=== PATIENT | female | born 1960 | race Two or more races ===

== ENCOUNTER 2017-04-11 10:49 | Emergency (ER) | payer SELFPAY ==
[~2017-04-11] VITALS: Ht 167.6 cm; Wt 113.4 kg
[2017-04-11 10:59] VITALS: BP 130/74
[2017-04-11] MEDS ORDERED: Morphine Sulfate 4mg/ml Inj IM ONE (11:15)
--- NOTE | 2017-04-11 11:58 | Diagnostic Imaging Report ---
Indication: Headache Technique: Contiguous 5 mm thick transaxial imaging of the head obtained in a Siemens Sensation [address] scanner. Soft tissue and bone windows generated. Automatic Exposure Control was utilized. Total Dose length Product (DLP): 1411.[address] Dose Index Volume (CTDIvol): 70.38 mGy Comparison: none Findings: The size and configuration of the cortical sulci, basal cisterns, and ventricles are within normal limits for age. There is no mass effect, midline shift, or edema identified. There is no evidence of acute hemorrhage or abnormal intra-axial or extra-axial fluid collections. The bones and soft tissues are unremarkable. Impression: No mass effect, edema or acute bleed. The CT scanner at [facility] is accredited by the [employer] and the scans are performed using dose optimization techniques as appropriate to a performed exam including Automatic Exposure control.
--- NOTE | 2017-04-11 12:02 | Diagnostic Imaging Report ---
Indication: Pelvic trauma and left hip pain Technique: Continuous helical transaxial imaging of the pelvis was obtained from the iliac crest to the pubic symphysis. Coronal 2-D reformats were also obtained. Study obtained in a Siemens sensation [address] Intravenous non-ionic contrast was administered. Total Dose length Product (DLP): 757.[address] Dose Index Volume (CTDIvol): 29.19 mGy Comparison: None Findings: No acute fracture or malalignment identified. Some vacuum phenomena and sclerosis of the sacroiliac joints noted indicative of mild arthrosis. Soft tissues are unremarkable in appearance. Incidentally there are some diverticula in the sigmoid colon demonstrated. Normal appendix is partially imaged on this study. There is a left adnexal structure that is probably the left ovary measuring 2.8 x 2.3 cm on transaxial images. Uterus is moderately atrophic. There is a right inguinal hernia containing fat. IMPRESSION: No acute injury identified. Incidental findings as described above The CT scanner at [facility] is accredited by the [employer] and the scans are performed using dose optimization techniques as appropriate to a performed exam including Automatic Exposure control.
[2017-04-11] MEDS ORDERED: IBUPROFEN600 MG ORAL (13:08)
[2017-04-11] MEDS ORDERED: CYCLOBENZAPRINE10 MG ORAL (13:16)
[2017-04-11 13:24] VITALS: BP 125/81
[2017-04-11] MEDS ORDERED: Ketorolac 30mg Inj IM ONE (13:30)
--- NOTE | 2017-04-12 13:39 | Emergency Room Report ---
History of Present Illness General Chief Complaint: Multiple Trauma/Fall Source: Patient Present Illness HPI 57-year-old female presents ED for evaluation. Patient brought in by EMS. Patient had a mechanical trip and fall today. Hit the back of her head, landing on her left hip. Denies LOC. Laceration to back of scalp. Tetanus is up-to-date. Complaining of left hip pain. Sharp, 10 out of 10, nonradiating. Denies any other injuries. Unable to bear weight. No other aggravating relieving factors. Denies any other associated symptoms Allergies: Coded Allergies: CODEINE (Verified Allergy, Intermediate, 04/11/17) Patient History Past Medical History: none Past Surgical History: none Pertinent Family History: none Social History: Denies: smoking, alcohol use, drug use Now: No Immunizations: UTD Reviewed Nursing Documentation: PMH: Agreed, PSxH: Agreed Nursing Documentation-PMH Past Medical History: No Stated History Review of Systems All Other Systems: negative except mentioned in HPI Physical Exam Vital Signs Date Time Temp Pulse Resp B/P (MAP) Pulse Ox O2 Delivery O2 Flow Rate FiO2 04/11/17 10:45 98.1 82 16 120/83 98 Room Air 98.1 Sp02 EP Interpretation: reviewed, normal General Appearance: no apparent distress, alert, GCS 15, non-toxic Head: normocephalic, other - 2cm posterior scalp laceration Eyes: bilateral eye normal inspection, bilateral eye PERRL ENT: hearing grossly normal, normal pharynx, no angioedema, normal voice Neck: full range of motion, no bony tend, supple/symm/no masses Respiratory: chest non-tender, lungs clear, normal breath sounds, speaking full sentences Cardiovascular #1: regular rate, rhythm, no edema Gastrointestinal: normal bowel sounds, non tender, soft, non-distended, no guarding, no rebound Rectal: deferred Genitourinary: no CVA tenderness, no vertebral tenderness Musculoskeletal: normal range of motion, tender - L hip Neurologic: alert, oriented x3, responsive, motor strength/tone normal, sensory intact, speech normal Psychiatric: normal inspection Skin: normal inspection Lymphatic: normal inspection Procedures Laceration/Wound Repair Laceration/Wound Repair : Consent: Verbal Wound Location: head - posterior scalp Wound's Depth, Shape: linear Wound Explored: clean Betadine Prep?: Yes Anesthesia: Lidocaine w/ Epi Wound Debrided: minimal Wound Repaired With: aman - 5 Sterile Dressing Applied?: Yes Splint Applied?: No Sling Applied?: No Patient Tolerated: Well Complications: None Medical Decision Making Diagnostic Impression: Primary Impression: Scalp laceration Qualified Codes: S01.01XA - Laceration without foreign body of scalp, initial encounter Additional Impressions: Multiple injuries due to trauma Contusion, hip Qualified Codes: S70.02XA - Contusion of left hip, initial encounter ER Course Hospital Course 57-year-old female presents ED complaining of headache, left hip pain status post trip and fall Differential diagnoses include: Fracture, dislocation, sprain, contusion Clinical course Patient placed on stretcher. After initial history and physical, I ordered pain medications and CT Head, Pelvis CT scan showed no acute process, no fracture Scalp wound irrigated, cleaned. Aman applied. On reassessment pain is improved. Ambulating. Diagnosis - scalp laceration, multiple injuries due to trauma, hip contusion Stable and discharged to home with prescription for Motrin. apply ice, keep elevated. Return to ED in 10 days for staple removal. Weight bear as tolerated. Followup with PMD. Return to ED if symptoms recur or worsen CT/MRI/US Diagnostic Results CT/MRI/US Diagnostic Results #1: Imaging Test Ordered: CT Head Impression no acute process CT/MRI/US Diagnostic Results #2: Imaging Test Ordered: CT Pelvis Impression no acute process Last Vital Signs Date Time Temp Pulse Resp B/P (MAP) Pulse Ox O2 Delivery O2 Flow Rate FiO2 04/11/17 13:24 125/81 04/11/17 13:20 98.2 04/11/17 10:59 58 28 95 Room Air Status: improved Disposition: HOME, SELF-CARE Condition: Improved Scripts Cyclobenzaprine Hcl* (FLEXERIL*) 10 Mg Tablet 10 MG ORAL TID Y for Muscle Spasm, #20 TAB Prov: ALDAIR AMIN M.D. 04/11/17 Ibuprofen* (MOTRIN*) 600 Mg Tablet 600 MG ORAL Q8H Y for For Pain, #30 TAB 0 Refills Prov: ALDAIR AMIN M.D. 04/11/17 Patient Instructions: Hip Pain ALDAIR AMIN M.D. Apr 12, 2017 13:39
== END 2017-04-11 13:42 | disposition home or self-care (01) ==
LOC: EDBD 10:49 → EMR 12:00
DX: S01.01XA Laceration without foreign body of scalp, initial encounter (principal); S70.02XA Contusion of left hip, initial encounter; W01.0XXA Fall on same level from slipping, tripping and stumbling without subsequent striking against object, initial encounter; Y92.9 Unspecified place or not applicable; R51 Headache; K40.90 Unilateral inguinal hernia, without obstruction or gangrene, not specified as recurrent
CPT/HCPCS: 12001; 70450; 72192; 96372; 99283; J1885; J2270

== ENCOUNTER 2017-04-21 16:09 | Emergency (ER) | payer SELFPAY ==
[~2017-04-21] VITALS: Ht 162.6 cm; Wt 95.3 kg
[~2017-04-21 16:09] MED LIST: CYCLOBENZAPRINE10 MG ORAL; IBUPROFEN600 MG ORAL
[2017-04-21 16:55] VITALS: BP 145/69
--- NOTE | 2017-04-21 18:59 | Emergency Room Report ---
History of Present Illness General Chief Complaint: Wound Recheck/Suture Removal Source: Patient Present Illness HPI 57-year-old female presents to ED for evaluation. Patient here for staple removal. Status post fall with head injury. Had aman placed in scalp. Was told to return in 10 days for staple removal. Denies any pain. States wound is healing well. Denies any discharge. No other aggravating relieving factors. Denies any other associated symptoms Allergies: Coded Allergies: CODEINE (Verified Allergy, Intermediate, 04/11/17) Patient History Past Medical History: none Past Surgical History: none Pertinent Family History: none Social History: Denies: smoking, alcohol use, drug use Now: No Immunizations: UTD Reviewed Nursing Documentation: PMH: Agreed, PSxH: Agreed Nursing Documentation-PMH Past Medical History: No Stated History Review of Systems All Other Systems: negative except mentioned in HPI Physical Exam Vital Signs Date Time Temp Pulse Resp B/P (MAP) Pulse Ox O2 Delivery O2 Flow Rate FiO2 04/21/17 16:22 98.9 59 16 145/69 93 99.0 04/21/17 16:55 Room Air Sp02 EP Interpretation: reviewed, normal General Appearance: no apparent distress, alert, GCS 15, non-toxic Head: normocephalic Eyes: bilateral eye normal inspection, bilateral eye PERRL ENT: normal ENT inspection Neck: normal inspection Respiratory: normal inspection Cardiovascular #1: normal inspection Gastrointestinal: normal inspection Rectal: deferred Genitourinary: no CVA tenderness Musculoskeletal: normal inspection Neurologic: alert, oriented x3, responsive, motor strength/tone normal, sensory intact, speech normal Psychiatric: normal inspection Skin: other - wound is C/D/I. well healed with aman Lymphatic: normal inspection Medical Decision Making Diagnostic Impression: Primary Impression: Removal of staple ER Course Patient presents to the emergency department today for staple removal. patient' s wound appears well-healed, and aman are ready to be removed today. Using sterile technique the aman were removed patient tolerated procedure well without any difficulty. Patient was given advice in how to care for the wound patient is advised followup with his private care doctor in 2-3 days and return to emergency room for any worsening conditions as needed Last Vital Signs Date Time Temp Pulse Resp B/P (MAP) Pulse Ox O2 Delivery O2 Flow Rate FiO2 04/21/17 16:55 37.66021 77 16 145/69 93 Room Air 210.2 Status: improved Disposition: HOME, SELF-CARE Condition: Stable Referrals: NOT CHOSEN IPA/MD,REFERRING (PCP) Patient Instructions: Stitches, Aman, or Adhesive Wound Closure, Easy-to- Read ALDAIR AMIN M.D. Apr 21, 2017 18:59
== END 2017-04-21 16:55 | disposition home or self-care (01) ==
LOC: EMR 16:36
DX: Z48.02 Encounter for removal of sutures (principal); Z88.5 Allergy status to narcotic agent
CPT/HCPCS: 99281